=== PATIENT | female | born 1980 | race Caucasian/White ===

== ENCOUNTER 2016-12-11 16:11 | Emergency (ER) | payer OTHER ==
--- NOTE | 2016-12-11 17:26 | EDM.PDOC ---
ED HPI GENERAL MEDICAL PROBLEM - General Chief Complaint: Cardiovascular Problem Stated Complaint: IRREGULAR HEARTBEAT Time Seen by Provider: 12/11/16 16:30 Source of Information: Reports: Patient History Limitations: Reports: No Limitations - History of Present Illness INITIAL COMMENTS - FREE TEXT/NARRATIVE: 36 year old female presents for evaluation and treatment of irregular heart beat. Reports she has experienced a sensation in her chest about once a week for several years. Has never discussed it with her PCP. Reports she became concerned today when she experienced several chest palpations in a row. States she had several last night and several today. Describes the sensation as a skipped beat that takes her breath away. Lasts only a few seconds. Does not cause any pain. Denies any dyspnea, shortness of breath, fevers, chills, nausea , vomiting, diaphoresis, dizziness, lightheadedness, syncope, leg pain or leg swelling. She denies any recent travel. Patient states she used to have caffeine frequently; several cups of coffee and sodas per day. She states recently she has been trying to cut down her caffeine consumption. Patient acknowledges she has anxiety. She reports the palpations case her anxiety to worsen. She is healthy with no known medical conditions. No medications. She does not use tobacco products. - Related Data Allergies Allergy/AdvReac Type Severity Reaction Status Date / Time Penicillins Allergy Difficulty Verified 12/11/16 21:39 Breathing Home Meds: Home Meds Ibuprofen [Motrin] 600 mg PO Q6H PRN #0 tablet 09/08/14 [Rx] Past Medical History Other Cardiovascular History: Elevated BP after first - transient. Few elevated BP's during 2nd . No formal diagnosis of HTN. 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 Denies: Chest Pain, Edema, Lightheadedness, Syncope GI/Abdominal: Denies: Nausea, Vomiting Neurological: Denies: Dizziness, Syncope Psychiatric: Reports: Anxiety ED EXAM, GENERAL - Physical Exam Exam: See Below Exam Limited By: No Limitations General Appearance: Alert, WD/WN, No Apparent Distress Nose: Normal Inspection Throat/Mouth: Normal Inspection, Normal Lips, Normal Voice, No Airway Compromise Neck: Normal Inspection Respiratory/Chest: No Respiratory Distress, Lungs Clear, Normal Breath Sounds Cardiovascular: Normal Peripheral Pulses, Regular Rate, Rhythm, No Murmur Peripheral Pulses: 2+: Radial (L), Radial (R), Posterior Tibial (L), Posterior Tibial (R), Dorsalis Pedis (L), Dorsalis Pedis (R) GI/Abdominal: Soft, Non-Tender Extremities: Normal Inspection, Normal Range of Motion, No Pedal Edema Neurological: Alert, Oriented, Normal Cognition Psychiatric: Normal Affect, Normal Mood Skin Exam: Warm, Dry, Normal Color EKG INTERPRETATION EKG Date: 12/11/16 Time: 16:20 Rhythm: NSR Rate (Beats/Min): 79 [place]: Normal P-Wave: Present QRS: Normal ST-T: Normal QT: Normal EKG Interpretation Comments: NSR at 79 bpm. No acute changes. Reviewed by myself and Dr. Cheney Course - Vital Signs Last Recorded V/S: Last Vital Signs Temp 36.3 C 12/11/16 16:18 Pulse 70 12/11/16 18:05 Resp 16 12/11/16 18:05 BP 126/75 12/11/16 18:05 Pulse Ox 99 12/11/16 18:05 - Orders/Labs/Meds Labs: Laboratory Tests 12/11/16 12/11/16 12/11/16 Range/Units 16:55 16:55 16:55 WBC 7.41 (3.98-10.04) K/mm3 RBC 4.39 (3.98-5.22) M/mm3 Hgb 13.9 (11.2-15.7) gm/L Hct 40.1 (34.1-44.9) % MCV 91.3 (79.4-94.8) fl MCH 31.7 (25.6-32.2) pg MCHC 34.7 (32.2-35.5) g/dl RDW Std Deviation 41.2 (36.4-46.3) fL Plt Count 188 (182-369) K/mm3 MPV 10.5 (9.4-12.3) fl Neut % (Auto) 52.6 (34.0-71.1) % Lymph % (Auto) 34.7 (19.3-51.7) % [place] % (Auto) 10.0 (4.7-12.5) % Eos % (Auto) 2.2 (0.7-5.8) Baso % (Auto) 0.4 (0.1-1.2) % Neut # (Auto) 3.90 (1.56-6.13) K/mm3 Lymph # (Auto) 2.57 (1.18-3.74) K/mm3 [place] # (Auto) 0.74 H (0.24-0.36) K/mm3 Eos # (Auto) 0.16 (0.04-0.36) K/mm3 Baso # (Auto) 0.03 (0.01-0.08) K/mm3 D-Dimer, Quantitative < 0.19 L (0.19-0.59) mg/L Sodium 140 (136-145) mEq/L Potassium 4.7 (3.5-5.1) mEq/L Chloride 105 (98-107) mEq/L Carbon Dioxide 29 (21-32) mEq/L Anion Gap 10.7 (5-15) BUN 16 (7-18) mg/dL Creatinine 0.9 (0.55-1.02) mg/dL Est Cr Clr Drug Dosing 81.67 mL/min Estimated GFR (MDRD) > 60 (>60) mL/min BUN/Creatinine Ratio 17.8 (14-18) Glucose 94 (74-106) mg/dL Calcium 8.9 (8.5-10.1) mg/dL Total Bilirubin 0.4 (0.2-1.0) mg/dL AST 13 L (15-37) U/L ALT 20 (14-59) U/L Alkaline Phosphatase 52 (46-116) U/L Troponin I < 0.017 (0.00-0.056) ng/mL Total Protein 7.1 (6.4-8.2) g/dl Albumin 3.8 (3.4-5.0) g/dl Globulin 3.3 gm/dL Albumin/Globulin Ratio 1.2 (1-2) TSH 3rd Generation 2.111 (0.358-3.74) uIU/mL - Radiology Interpretation Free Text/Narrative:: Chest x-ray one view impression per Dr. Garcia 1. Nothing acute seen a portable chest x-ray. - Re-Assessments/Exams Free Text/Narrative Re-Assessment/Exam: 12/11/16 17:52 I reviewed the chest xray, ekg and labs with the patient. I feel she is likely feeling PVCs or is having episodes of bradycardia. She has not experienced any chest palpations since entering the ER. She has been on the gambling monitor during her stay and no abnormalities were found. It is also possible she is having subclinical hypothyroidism. We discussed obtaining a holter monitor or an event monitor. She would like to follow-up with her PCP first and discuss these things more. Will discharge home. Discharge instructions as documented . Departure - Departure Time of Disposition: 17:57 Disposition: Home, Self-Care 01 Condition: Good Clinical Impression: Heart palpitations Instructions: Palpitations Referrals: Catarina Conde, [Primary Care Provider] - Forms: ED Department Discharge Additional Instructions: Go home and rest. Follow-up with your primary care provider for further management and treatment. Please return to the ER immediately if your symptoms change or worsen.
--- NOTE | 2016-12-11 17:40 | CR ---
Chest: Portable view of the chest was obtained. Comparison: Previous chest x-ray of 11/27/15. Heart size and mediastinum are normal. Lungs are clear. Bony structures are grossly intact. Impression: 1. Nothing acute is seen on portable chest x-ray. Diagnostic code #1
[2016-12-11 18:22] VITALS: BP 126/75
== END 2016-12-11 18:05 | disposition home or self-care (01) ==
LOC: JD.ED 16:11
DX: R00.2 Palpitations (principal); Z88.0 Allergy status to penicillin
CPT/HCPCS: 36415; 71010; 71010-26; 80053; 84443; 84484; 85025; 85379; 93005; 99284; 99285-25

== ENCOUNTER 2019-05-11 00:40 | Emergency (ER) | payer OTHER ==
[2019-05-11 00:52] VITALS: BP 141/69; PULSE 122
[2019-05-11] MEDS ORDERED: Famotidine 20 MG Tab PO ONE (01:24)
--- NOTE | 2019-05-11 01:32 | EDM.PDOC ---
ED HPI GENERAL MEDICAL PROBLEM - General Chief Complaint: Allergic Reaction Stated Complaint: ALLERGIC REACTION Time Seen by Provider: 05/11/19 00:55 Source of Information: Reports: Patient History Limitations: Reports: No Limitations - History of Present Illness INITIAL COMMENTS - FREE TEXT/NARRATIVE: Mrs. Pa is a very pleasant 38-year-old woman with a past medical history significant for allergic rhinitis, for which she takes Zyrtec, who states that she developed urticaria on her wrists and abdomen this past Friday night, 2019, after eating at [employer]. She took a Zyrtec, and applied hydrocortisone cream to the affected areas. On Friday morning, 05/10/2019, the urticaria was still there. She took another Zyrtec, and again applied hydrocortisone cream. She states that she did well during the day on Friday, however, tonight the urticaria was worse. She feared taking another Zyrtec, therefore only applied hydrocortisone cream. She then woke up around 00:30 this morning with her upper lip feeling swollen, and the urticaria now generalized all over. It is pruritic. She denies any gastrointestinal symptoms , such as heartburn, nausea, abdominal cramps, or diarrhea. She states that her throat feels scratchy, but her tongue does not feel swollen. No dyspnea or wheezing. The patient states that she had similar urticaria in September 2018. She took Zyrtec , and it resolved. She did not seek medical evaluation in that case. The last Zyrtec that the patient has taken was around 03:00 yesterday morning, 05/10/2019. Here in the ED, the patient is found to be tachycardic, but otherwise hemodynamically stable, afebrile, saturating 100% on room air. She does not appear to be in any distress. The patient's PCP is Amarilis Wynn NP. Her Quality Associate is Dr. Joselin Yang. She received an influenza vaccine this season. - Related Data Allergies Allergy/AdvReac Type Severity Reaction Status Date / Time Penicillins Allergy Difficulty Verified 05/11/19 00:53 Breathing Home Meds: Home Meds EPINEPHrine [Epinephrine] 1 injection IM ASDIRECTED PRN #1 kit 05/11/19 [Rx] Past Medical History HEENT History: Reports: Allergic Rhinitis - Past Surgical History HEENT Surgical History: Reports: Adenoidectomy, Oral Surgery (wisdom teeth extraction), Tonsillectomy Female Surgical History: Reports: Section (x 2), Other (See Below) ( Cervical ablation) Social & Family History - Tobacco Use Smoking Status *Q: Never Smoker - Caffeine Use Caffeine Use: Reports: Coffee, Soda - Alcohol Use Alcohol Use History: Yes Alcohol Use Frequency: Socially - Recreational Drug Use Recreational Drug Use: No - Living Situation & Occupation Living situation: Reports: , with Spouse, with Family (2 kids) 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 ED EXAM GENERAL NO PERIP PULSE - Physical Exam Exam: See Below Exam Limited By: No Limitations General Appearance: Alert, WD/WN, No Apparent Distress Eye Exam: Bilateral Eye: EOMI, Normal Inspection Ears: Normal External Exam, Normal Canal, Hearing Grossly Normal, Normal TMs Nose: Normal Inspection, Normal Mucosa, No Blood Throat/Mouth: Normal Inspection, Normal Lips (minimal, if any, swelling to upper lip), Normal Teeth, Normal Gums, Normal Oropharynx (no uvular or pharyngeal swelling), Normal Voice, No Airway Compromise Head: Atraumatic, Normocephalic Neck: Normal Inspection, Supple, Non-Tender, Full Range of Motion. No: Lymphadenopathy (L), Lymphadenopathy (R) Respiratory/Chest: No Respiratory Distress, Lungs Clear, Normal Breath Sounds, No Accessory Muscle Use. No: Decreased Breath Sounds, Crackles, Rhonchi, Wheezing, Stridor, Prolonged Expiration Cardiovascular: Normal Peripheral Pulses, Regular Rate, Rhythm, No Edema, No Gallop, No JVD, No Murmur, No Rub GI/Abdominal: Normal Bowel Sounds, Soft, Non-Tender, No Organomegaly, No Distention, No Abnormal Bruit, No Mass (Female) Exam: Deferred Rectal (Female) Exam: Deferred Back Exam: Normal Inspection, Full Range of Motion, NT Extremities: Normal Inspection, Normal Range of Motion, Non-Tender, Normal Capillary Refill, No Pedal Edema Neurological: Alert, Oriented, Normal Cognition, No Motor/Sensory Deficits Psychiatric: Normal Affect Skin Exam: Warm, Dry, Intact, Normal Color, Rash (generalized urticaria) Course - Vital Signs Last Recorded V/S: Last Vital Signs Temp 36.9 C 05/11/19 00:49 Pulse 122 H 05/11/19 00:49 Resp 18 05/11/19 00:49 BP 141/69 H 05/11/19 00:49 Pulse Ox 100 05/11/19 00:49 - Orders/Labs/Meds Meds: Medications Discontinued Medications Generic Name Dose Route Start Last Admin Trade Name Barrieq PRN Reason Stop Dose Admin Famotidine 20 mg 05/11/19 01:24 05/11/19 01:30 Pepcid PO 05/11/19 01:25 20 mg ONETIME ONE Administration - Re-Assessments/Exams Free Text/Narrative Re-Assessment/Exam: 05/11/19 01:26 The patient appears to be having an allergic reaction, almost certainly to something that she ate, with generalized urticaria and very mild upper lip swelling, but with no other signs of angioedema, wheezing or other respiratory difficulty, or gastrointestinal upset. Current guidelines recommend treatment with a second-generation nonsedating antihistamine, and since the patient is already on cetirizine (Zyrtec), we will have her continue with that, 1 tablet twice a day. I will also have her start taking an H2 reynold, such as famotidine. We will start her on that here in the ED, and is available over-the -counter. Because the patient does not have significant angioedema, glucocorticoids such as prednisone are not recommended at this time. I will prescribe an epinephrine pen, and refer her to an [employer] Work[employer]. Departure - Departure Time of Disposition: 01:34 Disposition: Home, Self-Care 01 Condition: Good Clinical Impression: Allergic reaction to food - Discharge Information *PRESCRIPTION DRUG MONITORING PROGRAM REVIEWED*: Not Applicable *COPY OF PRESCRIPTION DRUG MONITORING REPORT IN PATIENT PAN: Not Applicable Prescriptions: EPINEPHrine [Epinephrine] 1 injection IM ASDIRECTED PRN #1 kit PRN Reason: Shortness Of Breath Instructions: Food Allergy, [id number] Referrals: Amarilis Wynn NP [Primary Care Provider] - Shannan Caldwell MD [Ordering Only Provider] - Forms: ED Department Discharge Additional Instructions: You were seen in the emergency room after developing generalized hives and upper lip swelling. Based on your history and physical examination, you are suffering from an allergic reaction to some food that you ate. We recommend that you take 1 tablet of Zyrtec twice a day, until your symptoms have resolved. You have been started on the antacid medicine famotidine (Pepcid). Famotidine is available [id number], and generic is just as good as the brand name. We recommend that you take 1 tablet of famotidine either once or twice a day, until your symptoms have resolved. A prescription for an epinephrine autoinjector kit has been sent to the [facility], located in the [employer] grocery store. Inject yourself in the anterolateral thigh if you develop an allergic reaction with any difficulty breathing. You may repeat after 15 minutes, if necessary, however, it is imperative that you go to the nearest emergency department if you ever inject herself with epinephrine. It is very important that you discover what it is that you are allergic to so that you can avoid that food in the future. Please follow-up with the [employer] Worker Dr. Shannan Quintero, in [place], at the next available appointment, for evaluation. If any other problems, including worsening of your symptoms, please do not hesitate to return to the ER. Sepsis Event Note - Evaluation Sepsis Screening Result: No Definite Risk - Focused Exam Vital Signs: Vital Signs Temp Pulse Resp BP Pulse Ox 05/11/19 00:49 36.9 C 122 H 18 141/69 H 100 Date Exam was Performed: 05/11/19 Time Exam was Performed: 06:19
== END 2019-05-11 01:46 | disposition home or self-care (01) ==
LOC: JD.ED 00:40
DX: L50.0 Allergic urticaria (principal); Z88.0 Allergy status to penicillin
CPT/HCPCS: 99282; A9270; 99283

== ENCOUNTER 2022-06-16 10:18 | Emergency (ER) | payer BC, OTHER ==
[2022-06-16] MEDS ORDERED: Sodium Chloride 0.9% 10 ML Syringe FLUSH PRN (10:32)
[2022-06-16] MEDS ORDERED: Adenosine 6 MG/2 ML SDV IVPUSH ONE ×2 (10:33→10:45)
[2022-06-16] MEDS ORDERED: Adenosine 12 MG/4 ML SDV ONE (10:43)
[2022-06-16] MEDS ORDERED: Sodium Chloride 0.9% 1,000 ML IV SCH (10:45)
[2022-06-16] MEDS ORDERED: Diltiazem 125 MG/25 ML SDV ONE (10:46)
[2022-06-16] MEDS ORDERED: Diltiazem 25 MG/5 ML SDV IVPUSH ONE (10:46)
[2022-06-16] MEDS ORDERED: Diltiazem 25 MG/5 ML SDV ONE (10:46)
[2022-06-16] MEDS ORDERED: Sodium Chloride 0.9% 100 ML ONE (10:47)
[2022-06-16] MEDS ORDERED: Diltiazem 125 MG in Sodium Chloride 0.9% 100 ML IV SCH (11:00)
[2022-06-16] MEDS ORDERED: Ondansetron 4 MG/2 ML SDV IVPUSH ONE (11:05)
[2022-06-16] MEDS ORDERED: Sodium Chloride 0.9% 1,000 ML IV ONE (11:18)
[2022-06-16] MEDS ORDERED: Magnesium Sulfate/Water 2 GM in Premix Bag 1 BAG IV ONE (12:47)
[2022-06-16] MEDS ORDERED: Lactated Ringers 500 ML IV ONE (12:51)
[2022-06-16] MEDS ORDERED: Propofol 200 MG/20 ML SDV IVPUSH ONE (12:52)
[2022-06-16] MEDS ORDERED: Metoprolol Succinate 25 MG Tab.ER PO ONE (16:15)
[2022-06-16 17:01] VITALS: BP 118/80; PULSE 80
== END 2022-06-16 16:42 | disposition home or self-care (01) ==
LOC: JD.ED 10:18
DX: I48.91 Unspecified atrial fibrillation (principal); Z88.0 Allergy status to penicillin
CPT/HCPCS: 36415; 71045; 80053; 80307; 83735; 84443; 84484; 85025; 92960; 93005; 96365; 96366; 96367; 96375; 99285; A9270; J0153; J2405; J2704; J3475; J3490; J7030; J7120; 93010; 99284

== ENCOUNTER → 2022-11-05 | Day surgery (SDC) | payer BC ==
[~2022-11-05] MED LIST: Acetaminophen/oxyCODONE 325-5 MG Tab PO PRN; Bupivacaine 0.5% 30 ML SDV ONE; Dexamethasone 4 MG/ML 5 ML MDV ONE; HYDROmorphone 0.5 MG/0.5 ML Syringe IVPUSH PRN; HYDROmorphone 0.5 MG/0.5 ML Syringe ONE; Ketamine 500 mg/10 ML MDV ONE; Ketorolac 30 MG/ML SDV ONE; Lactated Ringers 1,000 ML IV SCH; Lactated Ringers 1,000 ML ONE; Lidocaine 1% 6 ML ONE; Metoclopramide 10 MG/2 ML SDV ONE; Midazolam 1 MG/ML 2 ML SDV ONE; Neostigmine Methylsulfate 10 MG/10 ML MDV ONE; Ondansetron 4 MG/2 ML SDV ONE; Propofol 200 MG/20 ML SDV ONE; Rocuronium 50 MG/5 ML Vial ONE; Scopolamine 1.5 MG Transdermal Patch TRDERM SCH; Sodium Chloride 0.9% 10 ML Syringe FLUSH PRN; Sodium Chloride 0.9% 10 ML Syringe FLUSH SCH; ceFAZolin 2 GM Vial ONE; fentaNYL 100 MCG/2 ML SDV IVPUSH PRN; fentaNYL 250 MCG/5 ML SDV ONE
[2022-11-05 07:30] LABS: BASOPHILS ABSOLUTE AUTO 0.1 K/mm3 (0.0-0.2); BASOPHILS PERCENT AUTO 0.8 % (0.0-1.0); EOSINOPHILS ABSOLUTE AUTO 0.4 K/mm3 (0.0-0.4); EOSINOPHILS PERCENT AUTO 5.6 % (0.0-6.0); HEMATOCRIT 40.9 % (37.0-47.0); HEMOGLOBIN 14.6 gm/dl (12.0-16.0); IMMATURE GRAN ABSOLUTE AUTO 0.01 K/mm3 (0.00-0.05); IMMATURE GRAN PERCENT AUTO 0.2 % (0.0-0.4); LYMPHOCYTES ABSOLUTE AUTO 2.2 K/mm3 (1.0-4.8); LYMPHOCYTES PERCENT AUTO 35.6 % (24.0-44.0); MEAN CORPUSCULAR HEMOGLOBIN 34.1 pg (28.0-32.0); MEAN CORPUSCULAR HGB CONC 35.7 g/dl (32.0-36.0); MEAN CORPUSCULAR VOLUME 95.6 fl (83.0-99.0); MEAN PLATELET VOLUME 10.3 fl (9.4-12.3); MONOCYTES ABSOLUTE AUTO 0.6 K/mm3 (0.0-0.8); MONOCYTES PERCENT AUTO 10.1 % (0.0-8.0); NEUTROPHILS PERCENT AUTO 47.7 % (41.0-71.0); PLATELET COUNT,PLT 221 K/mm3 (150-400); RED BLOOD CELL COUNT 4.28 M/mm3 (4.10-5.30); WHITE BLOOD CELL COUNT,WBC 6.24 K/mm3 (3.9-11.3)
[2022-11-05 07:31] LABS: BUN/CREATININE RATIO 16.3 (14-18); CREATININE 0.8 mg/dL (0.55-1.02); EST CRCL DRUG DOSING (CG) 83.14 mL/min
[2022-11-05] MEDS: Bupivacaine 0.25%/EPINEPHrine 1:200,000 30 ML SDV ONE ×2 (08:44→08:51)
[2022-11-05 14:33] VITALS: BP 102/54; PULSE 70
== END | disposition home or self-care (01) ==
LOC: JD.SDS 06:41
PROVIDERS: ATTEND Obstetrics & Gynecology
DX: D25.9 Leiomyoma of uterus, unspecified (principal); N80.03 Adenomyosis of the uterus; K21.9 Gastro-esophageal reflux disease without esophagitis; I48.91 Unspecified atrial fibrillation; F41.9 Anxiety disorder, unspecified; J30.9 Allergic rhinitis, unspecified; G43.109 Migraine with aura, not intractable, without status migrainosus; Z87.891 Personal history of nicotine dependence; Z90.89 Acquired absence of other organs; Z79.899 Other long term (current) drug therapy; Z91.048 Other nonmedicinal substance allergy status; Z88.0 Allergy status to penicillin
CPT/HCPCS: 36415; 58552; 80048; 81025; 85025; 86850; 86900; 86901; A9270; J0690; J1100; J1170; J1885; J2250; J2405; J2704; J2710; J2765; J3010; J3490; J7120